=== PATIENT | female | born 1975 | race American Indian/Alaskan Native ===

== ENCOUNTER 2016-12-27 02:16 | Emergency (ER) | payer OTHER ==
[2016-12-27 02:31] VITALS: BP 118/66
[2016-12-27] MEDS ORDERED: TETRACAINE 0.5% OU PRN (02:50)
[2016-12-27] MEDS ORDERED: FUL-GLO OP ONE (02:51)
--- NOTE | 2016-12-27 02:51 | Emergency Department Report ---
Eye Injury/Foreign Body - HPI Duration: Today (1 am) Eye Location: Right Severity: Mild Tetanus Status: Up to Date Eye Symptoms: Eye Pain: No, Blurred Vision: No, Eye Redness: No, Grinding/ Hammering Metal: No, Used Eye Protection: No, Contact Lens Use: No, Photophobia : No Other History: This is a 41-year-old female that presents with right eye burning senstation status post splash of germicidal wipe. Patient stated she took the cleaning soultion to start whipping the patient bed when it hit her eye by accident. Patient symptoms include burning senstation. Patient denies any pain or blurry vision. Patient denies any visual changes. Patient denies any drug allergies. Patient stated right after the incident, she washed her eyes at the eye station with water. ED Review of Systems ROS: Stated complaint: EYE IRRIATION Other details as noted in HPI Constitutional: denies: chills, fever Eyes: denies: eye pain, eye discharge, vision change ENT: denies: ear pain, throat pain Respiratory: denies: cough, shortness of breath, wheezing Cardiovascular: denies: chest pain, palpitations Endocrine: no symptoms reported Gastrointestinal: denies: abdominal pain, nausea, diarrhea Genitourinary: denies: urgency, dysuria, discharge Musculoskeletal: denies: back pain, joint swelling, arthralgia Skin: denies: rash, lesions Neurological: denies: headache, weakness, paresthesias Psychiatric: denies: anxiety, depression Hematological/Lymphatic: denies: easy bleeding, easy bruising ED Past Medical Hx - Past Medical History Previous Medical History?: No - Surgical History Past Surgical History?: No - Social History Smoking Status: Never Smoker Substance Use Type: None Eye Injury Exam - Exam General: Vital signs noted. No distress. Alert and acting appropriately. GENERAL: The patient is a well-developed, well-nourished male in no apparent distress. He is alert and oriented x3. VITAL SIGNS: Stable HEENT: Head is normocephalic and atraumatic. Extraocular muscles are intact. Pupils are equal, round, and reactive to light and accommodation. Nares appeared normal. Mouth is well hydrated and without lesions. Mucous membranes are moist. Posterior pharynx clear of any exudate or lesions. NECK: Supple. No carotid bruits. No lymphadenopathy or thyromegaly. LUNGS: Clear to auscultation. HEART: Regular rate and rhythm without murmur. ABDOMEN: Soft, nontender, and nondistended. Positive bowel sounds. No hepatosplenomegaly was noted. EXTREMITIES: Without any cyanosis, clubbing, rash, lesions or edema. NEUROLOGIC: Cranial nerves II through XII are grossly intact. PSYCHIATRIC: Flat affect, but denies suicidal or homicidal ideations. SKIN: No ulceration or induration present. - Visual Acuity Left Vision Acuity Degree: right eye 20/40 Eye Exam: Neither Injection, Neither Chemosis, Neither Abnormal Pupil, Neither EOMI, Neither Eye Foreign Body, Neither Lid Foreign Body, Neither Mucous Discharge, Neither Purulent Discharge, Neither Fluorescein Uptake, Neither Fluorescein Uptake (slit lamp), Neither Cell/Flare (slit lamp), Neither Corneal Edema, Neither Photophobia Right Vision Acuity Degree: 20/40 Eye Exam: Neither Injection, Neither Chemosis, Neither Abnormal Pupil, Neither EOMI, Neither Eye Foreign Body, Neither Lid Foreign Body, Neither Mucous Discharge, Neither Purulent Discharge, Neither Fluorescein Uptake, Neither Fluorescein Uptake (slit lamp), Neither Cell/Flare (slit lamp), Neither Corneal Edema, Neither Photophobia Exam: Normal exam. no signs of foreign body. No erythema. No coronary abrasion noted. No discharge. No hematoma. No blurry vision. No visual changes. ED Course Vital Signs 12/27/16 02:26 Temperature 97.9 F Pulse Rate 72 Respiratory 16 Rate Blood Pressure 118/66 O2 Sat by Pulse 100 Oximetry ED Medical Decision Making - Medical Decision Making Ed course: This is a 41-year-old female that presents with right eye burning sensation status post splash with germicidal wipe 1- No signs of foreign body or corneal abrasion during exam with marcelino lamp 2- after patient received tetracaine patient stated no burning sensation or pain. 3- at the time of discharge the patient does not seem toxic or ill in appearance. 4- patient agrees to discharge plan. No further questions noted at this time. Critical care attestation.: If time is entered above; I have spent that time in minutes in the direct care of this critically ill patient, excluding procedure time. ED Disposition Clinical Impression: Eye irritation Disposition: DISCHARGED TO HOME OR SELFCARE Is pt being admited?: No Does the pt Need Aspirin: No Condition: Stable Instructions: Eye Wash (Into the eye) Additional Instructions: Follow-up with your primary care doctor through 3-5 days If symptoms worsen such as decreased visual acuity, blurry vision, crusting, swelling or discharge in the eye please come back to the ER Referrals: PRIMARY CARE, [Primary Care Provider] - 3-5 Days Forms: Work/School Release Form(ED)
== END 2016-12-27 03:17 | disposition home or self-care (01) ==
LOC: ED 02:16
DX: H57.8 Other specified disorders of eye and adnexa (principal)
CPT/HCPCS: 99283